=== PATIENT | female | born 1990 | race Native Hawaiian/Other Pacific Islander ===

== ENCOUNTER 2016-11-13 16:24 | Emergency (ER) | payer OTHER ==
[~2016-11-13] VITALS: Ht 154.9 cm; Wt 63.5 kg
[2016-11-13 16:30] VITALS: BP 137/93; TEMP 98.2
== END 2016-11-13 17:43 | disposition home or self-care (01) ==
LOC: ED 16:24
DX: S20.212A Contusion of left front wall of thorax, initial encounter (principal); W01.0XXA Fall on same level from slipping, tripping and stumbling without subsequent striking against object, initial encounter; Y92.098 Other place in other non-institutional residence as the place of occurrence of the external cause
CPT/HCPCS: 96372; 99282; J1885

== ENCOUNTER 2017-02-15 13:37 | Outpatient (CLI) | payer OTHER | END 2017-02-15 15:00 | disposition home or self-care (01) | LOC: MAMMO 13:37 | DX: N63 Unspecified lump in breast (principal) | CPT/HCPCS: G0204-TC ==

== ENCOUNTER 2017-05-12 20:59 | Emergency (ER) | payer OTHER | END 2017-05-12 21:30 | disposition home or self-care (01) | LOC: ED 20:59 | DX: R10.31 Right lower quadrant pain (principal) | CPT/HCPCS: 99281 ==

== ENCOUNTER 2018-05-02 11:30 | Emergency (ER) | payer OTHER ==
[~2018-05-02] VITALS: Ht 152.4 cm; Wt 50.3 kg
[2018-05-02 11:40] VITALS: TEMP 98.1
[2018-05-02 13:08] LABS: PLATELET COUNT 242 K/uL (152-353)
[2018-05-02 13:16] LABS: POTASSIUM 3.5 mmol/L (3.6-5.2)
[2018-05-02 14:14] VITALS: BP 122/64
== END 2018-05-02 14:14 | disposition home or self-care (01) ==
LOC: ED 11:30
PROVIDERS: Emergency Medicine
DX: R10.84 Generalized abdominal pain (principal); N80.8 Other endometriosis
CPT/HCPCS: 36415; 80053; 81000; 81025; 82150; 83690; 85027; 96372; 99283; J1885

== ENCOUNTER 2018-07-19 22:22 | Emergency (ER) | payer OTHER ==
[~2018-07-19] VITALS: Ht 152.4 cm; Wt 51.3 kg
[2018-07-20 05:10] VITALS: BP 106/54; TEMP 98.3
== END 2018-07-20 05:10 | disposition home or self-care (01) ==
LOC: ED 22:22
DX: K59.09 Other constipation (principal)
CPT/HCPCS: 74022; 81025; 96372; 99284; J2175; J2550

== ENCOUNTER 2018-10-05 00:07 | Outpatient (CLI) | payer OTHER | END 2018-10-05 00:18 | disposition short-term general hospital (02) | LOC: AMB 00:07 | DX: S00.83XA Contusion of other part of head, initial encounter (principal); W19.XXXA Unspecified fall, initial encounter; Y93.89 Activity, other specified; Y92.89 Other specified places as the place of occurrence of the external cause | CPT/HCPCS: A0425; A0427 ==

== ENCOUNTER 2018-12-21 09:26 | Outpatient (CLI) | payer OTHER ==
[2018-12-21 09:52] LABS: PLATELET COUNT 276 K/uL (152-353)
[2018-12-21 10:25] LABS: POTASSIUM 3.6 mmol/L (3.6-5.2)
== END 2018-12-21 19:21 | disposition home or self-care (01) ==
LOC: CT 09:26
PROVIDERS: Nurse Practitioner Family
DX: R10.31 Right lower quadrant pain (principal); R11.2 Nausea with vomiting, unspecified; Z86.2 Personal history of diseases of the blood and blood-forming organs and certain disorders involving the immune mechanism; Z79.899 Other long term (current) drug therapy
CPT/HCPCS: 36415; 80053; 81025; 82728; 83540; 83550; 84439; 84443; 85027; Q9963

== ENCOUNTER 2019-03-06 09:54 | Outpatient (CLI) | payer OTHER | END 2019-03-06 19:31 | disposition home or self-care (01) | LOC: CT 09:54 | DX: R10.9 Unspecified abdominal pain (principal) ==

== ENCOUNTER 2019-05-23 18:37 | Emergency (ER) | payer OTHER ==
[~2019-05-23] VITALS: Ht 152.4 cm; Wt 58.5 kg
[2019-05-23 21:24] LABS: PLATELET COUNT 250 K/uL (152-353)
[2019-05-23 21:28] LABS: POTASSIUM 3.8 mmol/L (3.6-5.2)
[2019-05-23 23:20] VITALS: BP 108/77; TEMP 97.9
== END 2019-05-23 23:20 | disposition home or self-care (01) ==
LOC: ED 18:37
PROVIDERS: Emergency Medicine
DX: R14.1 Gas pain (principal); K59.09 Other constipation
CPT/HCPCS: 36415; 80053; 81000; 81025; 85027; 96360; 96375; 99284; J1885

== ENCOUNTER 2020-11-19 19:32 | Emergency (ER) | payer OTHER ==
[~2020-11-19] VITALS: Ht 152.4 cm; Wt 63.5 kg
[2020-11-19 19:37] VITALS: BP 113/66; TEMP 99.2
== END 2020-11-19 21:14 | disposition home or self-care (01) ==
LOC: ED 19:32
PROC: 2W3CX1Z Immobilization of Right Lower Arm using Splint (ICD-10-PCS; principal; 2020-11-19)
DX: S63.591A Other specified sprain of right wrist, initial encounter (principal); S50.01XA Contusion of right elbow, initial encounter; W18.09XA Striking against other object with subsequent fall, initial encounter; Y93.66 Activity, soccer; Y92.89 Other specified places as the place of occurrence of the external cause
CPT/HCPCS: 99283

== ENCOUNTER 2020-12-22 10:22 | Outpatient (CLI) | payer OTHER | END 2020-12-22 22:09 | disposition home or self-care (01) | LOC: RAD 10:22 | PROVIDERS: ATTEND Nurse Practitioner Primary Care | DX: J20.9 Acute bronchitis, unspecified (principal) ==

== ENCOUNTER 2021-02-11 08:48 | Emergency (ER) | payer OTHER ==
[~2021-02-11] VITALS: Ht 152.4 cm; Wt 59.0 kg
[2021-02-11 09:01] VITALS: TEMP 98.8
[2021-02-11 09:26] LABS: PLATELET COUNT 206 K/uL (152-353)
[2021-02-11 09:41] LABS: POTASSIUM 3.9 mmol/L (3.6-5.2)
[2021-02-11 11:45] VITALS: BP 106/60
== END 2021-02-11 11:53 | disposition home or self-care (01) ==
LOC: ED 08:48
PROVIDERS: Hospitalist
DX: R19.7 Diarrhea, unspecified (principal); J06.9 Acute upper respiratory infection, unspecified; Z20.822 Contact with and (suspected) exposure to COVID-19; F17.210 Nicotine dependence, cigarettes, uncomplicated
CPT/HCPCS: 36415; 80048; 81000; 81025; 85027; 87635; 96360; 96375; 99284; J2405; U0003

== ENCOUNTER 2021-06-05 17:06 | Emergency (ER) | payer OTHER ==
[~2021-06-05] VITALS: Ht 152.4 cm; Wt 49.9 kg
[2021-06-05 21:56] VITALS: BP 115/83; TEMP 98.8
== END 2021-06-05 21:56 | disposition home or self-care (01) ==
LOC: ED 17:06
DX: T76.21XA Adult sexual abuse, suspected, initial encounter (principal); S80.01XA Contusion of right knee, initial encounter; R10.2 Pelvic and perineal pain; X58.XXXA Exposure to other specified factors, initial encounter; Y92.89 Other specified places as the place of occurrence of the external cause
CPT/HCPCS: 80307; 81000; 81025; 87490; 87590; 96372; 99283; 99284; J0696

== ENCOUNTER 2021-07-14 12:49 | Emergency (ER) | payer OTHER ==
[~2021-07-14] VITALS: Ht 152.4 cm; Wt 49.9 kg
[2021-07-14 14:11] LABS: PLATELET COUNT 240 K/uL (152-353)
[2021-07-14 14:23] LABS: POTASSIUM 3.6 mmol/L (3.6-5.2)
[2021-07-14 16:30] VITALS: BP 100/49; TEMP 97.9
== END 2021-07-14 16:30 | disposition home or self-care (01) ==
LOC: ED 12:49
PROVIDERS: Emergency Medicine Emergency Medical Services
DX: N73.8 Other specified female pelvic inflammatory diseases (principal)
CPT/HCPCS: 36415; 80053; 80307; 81000; 81025; 85027; 87490; 87590; 96360; 96375; 99284; J2270; J2405; Q9963

== ENCOUNTER 2021-09-23 14:24 | Outpatient (CLI) | payer OTHER ==
[2021-09-23 14:59] LABS: PLATELET COUNT 201 K/uL (152-353)
[2021-09-23 15:07] LABS: POTASSIUM 3.4 mmol/L (3.6-5.2); SODIUM 143 mmol/L (136-145)
== END 2021-09-23 19:23 | disposition home or self-care (01) ==
LOC: LABW 14:24
PROVIDERS: ATTEND Nurse Practitioner Family
DX: N91.1 Secondary amenorrhea (principal)
CPT/HCPCS: 36415; 80053; 82150; 83690; 84702; 85027

== ENCOUNTER 2021-11-08 08:13 | Emergency (ER) | payer OTHER ==
[~2021-11-08] VITALS: Ht 152.4 cm; Wt 53.6 kg
[2021-11-08 08:20] VITALS: TEMP 98.7
[2021-11-08 09:07] LABS: PLATELET COUNT 163 K/uL (152-353)
[2021-11-08 11:00] VITALS: BP 87/37
== END 2021-11-08 11:10 | disposition home or self-care (01) ==
LOC: ED 08:13
PROVIDERS: Emergency Medicine Emergency Medical Services
DX: R10.31 Right lower quadrant pain (principal)
CPT/HCPCS: 36415; 80053; 80307; 81000; 82150; 83690; 84702; 85027; 96360; 96374; 96375; 99284; J1885; J2405; Q9963

== ENCOUNTER 2022-04-30 11:27 | Emergency (ER) | payer OTHER ==
[~2022-04-30] VITALS: Ht 152.4 cm; Wt 53.5 kg
[2022-04-30 12:50] VITALS: BP 112/57; TEMP 98.1
== END 2022-04-30 13:01 | disposition home or self-care (01) ==
LOC: ED 11:27
DX: B34.9 Viral infection, unspecified (principal); F17.210 Nicotine dependence, cigarettes, uncomplicated
CPT/HCPCS: 87502; 87651; 99283

== ENCOUNTER 2022-06-13 08:48 | Emergency (ER) | payer OTHER ==
[~2022-06-13] VITALS: Ht 152.4 cm; Wt 53.5 kg
[2022-06-13 08:54] VITALS: BP 94/58; TEMP 98.2
[2022-06-13 09:31] LABS: PLATELET COUNT 218 K/uL (152-353)
== END 2022-06-13 11:14 | disposition home or self-care (01) ==
LOC: ED 08:48
PROVIDERS: Emergency Medicine Emergency Medical Services
DX: N23 Unspecified renal colic (principal)
CPT/HCPCS: 36415; 80048; 80307; 81002; 85027; 96360; 96374; 99284; J1885; Q9963

== ENCOUNTER 2022-08-10 12:50 | Outpatient (CLI) | payer OTHER | END 2022-08-10 19:30 | disposition home or self-care (01) | LOC: RAD 12:50 | PROVIDERS: ATTEND Nurse Practitioner Family | DX: U07.1 COVID-19 (principal) ==

== ENCOUNTER 2022-10-24 19:19 | Emergency (ER) | payer OTHER ==
[~2022-10-24] VITALS: Ht 152.4 cm; Wt 56.7 kg
[2022-10-24 19:25] VITALS: TEMP 98.8
[2022-10-24 21:45] VITALS: BP 118/65
== END 2022-10-24 21:45 | disposition home or self-care (01) ==
LOC: ED 19:19
PROC: 2W3LX1Z Immobilization of Right Lower Extremity using Splint (ICD-10-PCS; principal; 2022-10-24)
DX: S09.8XXA Other specified injuries of head, initial encounter (principal); S82.831A Other fracture of upper and lower end of right fibula, initial encounter for closed fracture; Y04.0XXA Assault by unarmed brawl or fight, initial encounter; Y92.89 Other specified places as the place of occurrence of the external cause
CPT/HCPCS: 81025; 99283

== ENCOUNTER 2022-11-07 12:50 | Outpatient (CLI) | payer OTHER | END 2022-11-07 21:22 | disposition home or self-care (01) | LOC: RAD 12:50 | PROVIDERS: ATTEND Physician Assistant | DX: M79.604 Pain in right leg (principal) ==

== ENCOUNTER 2022-11-26 13:44 | Emergency (ER) | payer OTHER ==
[~2022-11-26] VITALS: Ht 152.4 cm; Wt 52.6 kg
[2022-11-26 16:03] LABS: PLATELET COUNT 207 K/uL (152-353)
[2022-11-26 16:07] LABS: POTASSIUM 3.5 mmol/L (3.6-5.2)
[2022-11-26 18:46] VITALS: BP 83/51; TEMP 98.6
== END 2022-11-26 18:55 | disposition home or self-care (01) ==
LOC: ED 13:44
PROVIDERS: Family Medicine
DX: N30.90 Cystitis, unspecified without hematuria (principal); J02.9 Acute pharyngitis, unspecified; R10.30 Lower abdominal pain, unspecified; F17.210 Nicotine dependence, cigarettes, uncomplicated
CPT/HCPCS: 36415; 80053; 80307; 81000; 81025; 82150; 83690; 85027; 87502; 87635; 87651; 96372; 99283; J1885; J2550; U0001

== ENCOUNTER 2022-11-30 07:42 | Emergency (ER) | payer OTHER ==
[~2022-11-30] VITALS: Ht 152.4 cm; Wt 49.9 kg
[2022-11-30 08:14] VITALS: BP 99/58; TEMP 97.7
== END 2022-11-30 08:59 | disposition home or self-care (01) ==
LOC: ED 07:42
DX: A59.8 Trichomoniasis of other sites (principal); F17.290 Nicotine dependence, other tobacco product, uncomplicated
CPT/HCPCS: 81000; 81025; 99283

== ENCOUNTER 2023-02-19 15:27 | Emergency (ER) | payer OTHER ==
[~2023-02-19] VITALS: Ht 152.4 cm; Wt 54.4 kg
[2023-02-19 15:44] VITALS: BP 94/53; TEMP 98.1
== END 2023-02-19 17:16 | disposition home or self-care (01) ==
LOC: ED 15:27
DX: L98.9 Disorder of the skin and subcutaneous tissue, unspecified (principal); B37.89 Other sites of candidiasis
CPT/HCPCS: 81000; 81025; 87077; 87086; 87088; 87186; 99283

== ENCOUNTER 2023-02-23 17:04 | Emergency (ER) | payer OTHER ==
[~2023-02-23] VITALS: Ht 152.4 cm; Wt 52.2 kg
[2023-02-23 17:05] VITALS: BP 105/67; TEMP 98.4
[2023-02-23 17:31] LABS: PLATELET COUNT 235 K/uL (152-353)
[2023-02-23 17:41] LABS: POTASSIUM 3.1 mmol/L (3.6-5.2)
== END 2023-02-23 19:46 | disposition home or self-care (01) ==
LOC: ED 17:04
PROVIDERS: Family Medicine
DX: N61.1 Abscess of the breast and nipple (principal); N61.0 Mastitis without abscess
CPT/HCPCS: 36415; 80053; 81025; 83605; 85027; 96365; 99284; J3370

== ENCOUNTER 2023-02-24 08:57 | Emergency (ER) | payer OTHER ==
[~2023-02-24] VITALS: Ht 152.4 cm; Wt 52.2 kg
[2023-02-24 09:00] VITALS: TEMP 98
[2023-02-24 11:33] VITALS: BP 93/62
== END 2023-02-24 11:44 | disposition short-term general hospital (02) ==
LOC: ED 08:57
PROC: 0H95XZZ Drainage of Chest Skin, External Approach (ICD-10-PCS; principal; 2023-02-24)
DX: N61.1 Abscess of the breast and nipple (principal)
CPT/HCPCS: 96365; 96375; 99284; J2270; J2405